=== PATIENT | female | born 1995 | race Asian ===

== ENCOUNTER 2024-03-31 15:13 | Emergency (ER) | payer OTHER, SELFPAY ==
[2024-03-31 15:24] VITALS: BP 122/98
--- NOTE | 2024-03-31 18:54 | ED.GENMED ---
History of Present Illness
General
Chief Complaint: Eye Problems
Source: patient
Exam Limitations: none
Time Seen by Provider: 03/31/24 18:31
Travel History
Have you had any contact with someone who has COVID-19?: No
Do you have any symptoms of coronavirus? Fever > 100 degrees, chills, cough, shortness of breath, sore throat, loss of taste or smell, muscle aches, or headache?: No
History of Present Illness
History of Present Illness:
28-year-old female presents with swelling of her left upper lid. She does wear make-up and stopped wearing it when her eyelid became swollen. Started about a week ago. Now her upper lid is all swollen. No fevers. No vision changes.
Past History
Past History
ED Past Medical History: None
ED Past Surgical History: None
Phy Exam
Physical Exam
Physical Exam:
CONSTITUTIONAL Vital signs reviewed, Patient alert and oriented to person, place and time. Well-appearing
HEAD atraumatic, normocephalic.
EYES hordeolum noted to left upper lid, moderate swelling of the left in the, extraocular muscles intact, Conjunctiva normal, Sclera normal.
NECK normal range of motion, Trachea midline, no jugular venous distention.
RESP no respiratory distress
BACK No obvious deformities
UPPER EXTREMITY Gross Range of motion normal, gross motor strength normal
LOWER EXTREMITY Gross range of motion normal, Gross motor strength normal
NEURO Speech normal, No focal motor deficits include, Brandie coma scale 15, Memory normal, Cranial Nerves intact to screening exam.
SKIN Skin warm, dry, and normal in color.
PSYCHIATRIC Patient oriented to person place and time, Normal affect.
Course
Vital Signs
Initial and Last Documented VS:
Initial Vital Signs
Temp Pulse Resp BP Pulse Ox
98.1 F 77 16 122/98 100
03/31/24 15:24 03/31/24 15:24 03/31/24 15:24 03/31/24 15:24 03/31/24 15:24
Last Documented Vital Signs
Temp Pulse Resp BP Pulse Ox
98.1 F 75 16 104/63 100
03/31/24 15:24 03/31/24 19:15 03/31/24 15:24 03/31/24 19:15 03/31/24 15:24
MDM/Problems Addressed
MDM/Problems Addressed:
Hordeolum
*Pulse Oximetry
Patient hypoxic: no
*Critical Care Note
Total Time (30-74mins, 75-104mins- exclusive of procedures): Not Applicable
Data Reviewed
Source: patient
Patient Management
Escalation/DeEscalation of care consider admission/obs:
Hordeolum noted but there is swelling throughout the upper lids and will cover with antibiotics and outpatient ophthalmology follow-up
ED Attending Note
-
Portions of this chart may have been created with voice recognition software.� Occasional wrong word or��sound alike� substitutions may have occurred due to the inherent limitations of voice recognition software.
Discharge Plan
Departure
Patient Disposition: Home (Routine Discharge)
Date of Disposition: 03/31/24
Time of Disposition: 18:54
Patient with high blood pressure during this ER visit?: No
Discharge Problem:
Hordeolum
Instructions: Stye
Prescriptions:
New
cephalexin 500 mg capsule
500 mg PO TID Qty: 21 0RF
Referrals:
NONE,* [Family Provider] -
Isabella Grant MD [Active] -
Activity Restrictions/Additional Instructions:
Please see ophthalmology next 3 to 5 days for follow-up and reevaluation. Please apply warm compresses aggressively as discussed. Return for increased swelling, increased redness, fevers or any other concerns.
Interventions
Interventions:
*Risk Screen - Suicide Last Done: 03/31/24 15:24
*General Assessment Last Done: 03/31/24 15:24
*Neglect/Abuse Screening Last Done: 03/31/24 15:24
*Nursing Disposition Last Done: 03/31/24 19:15
Discharge Date and Time
Discharge Date/Time: 03/31/24 19:16
Print Language: GREENLANDIC
[2024-03-31 19:12] VITALS: BP 104/63
[2024-03-31 19:15] VITALS: BP 104/63
== END 2024-03-31 19:16 | disposition home or self-care (01) ==
LOC: EMR 15:13
PROVIDERS: EMERGENCY PHYSICIAN Emergency Medicine
DX: H00.014 Hordeolum externum left upper eyelid (principal)
CPT/HCPCS: 99283